=== PATIENT | female | born 1960 | race American Indian/Alaskan Native ===

== ENCOUNTER 2020-10-02 16:28 | Emergency (ER) | payer BC ==
[2020-10-02] MEDS ORDERED: DIPHtheria,PERTUSSIS(ACELL),TETANUS VACCINE/PF 0.5 ML VIAL IM ONE (17:19)
--- NOTE | 2020-10-02 17:20 | Event Note ---
ED Screening Note Date of service: 10/02/20 Time: 17:17 ED Screening Note: 59-year-old female presents to the emergency room stating she has a laceration to her pinky finger in her ring finger on the left hand. Patient states that she cut it accidentally on hedge clippers that her electric. Patient reports she is not up-to-date on her tetanus shot. This initial assessment/diagnostic orders/clinical plan/treatment(s) is/are subject to change based on patients health status, clinical progression and re- assessment by fellow clinical providers in the ED. Further treatment and workup at subsequent clinical providers discretion. Patient/guardian urged not to elope from the ED as their condition may be serious if not clinically assessed and managed. Initial orders include:
--- NOTE | 2020-10-02 19:06 | XRay Report ---
LEFT FINGER(S) 3 VIEW(S) INDICATION / CLINICAL INFORMATION: laceration with hedge cutter COMPARISON: None available. FINDINGS: BONES / JOINT(S): Tiny acute fracture of the terminal tuft of the ring finger. Remaining osseous stru ctures appear intact. No dislocation. Diffuse mild degenerative osteoarthrosis. SOFT TISSUES: Mild edema about the distal ring finger. No radiopaque foreign object. ADDITIONAL FINDINGS: None. Signer Name: David Hilliard MD Signed: 10/02/2020 7:02 PM Workstation Name: [id number]
[2020-10-02] MEDS ORDERED: IBUPROFEN 600 MG TAB PO ONE (23:49)
[2020-10-02] MEDS ORDERED: ACETAMINOPHEN 500 MG TAB PO ONE (23:49)
[2020-10-02] MEDS ORDERED: LIDOCAINE (1%) 10 MG/1 ML VIAL 20 ML MDV INFILTRATI ONE (23:49)
[2020-10-02] MEDS ORDERED: ceFAZolin 1 GM VIAL IM ONE (23:49)
[2020-10-02] MEDS ORDERED: NEOMY 3.5 MG/BACIT 400 UNITS/POLY B 5000 UNITS/GM OINT PACKET TP ONE (23:50)
[2020-10-03] MEDS ORDERED: DIPHtheria,PERTUSSIS(ACELL),TETANUS VACCINE/PF 0.5 ML VIAL IM ONE (00:04)
--- NOTE | 2020-10-03 01:21 | Emergency Department Report ---
ED Upper Extremity Inj HPI - General Chief Complaint: Extremity Injury, Upper Stated Complaint: LT RING/PINKY INJURY Source: patient Mode of arrival: Ambulatory Limitations: No Limitations - History of Present Illness Initial Comments: Patient is a 59-year-old white female with a history of hypertension who presents to the ED with complaint of acute onset persistent painful bleeding distal left ring finger and small finger lacerations after she accidentally cut the distal left ring and small fingers with hedge clippers when trying to trim her fences and hedges about 8 hours ago. Patient states that the pain has been persistent and severe especially in the last 6 hours. Patient states that she is not up-to-date with her tetanus vaccinations. Patient denies numbness and tingling or weakness of left hand, dizziness, syncope, chest pain, shortness of breath, headache, fall, change in vision or back pain. Complaint: Injury to:: left, hand, finger (Left 5th and ring finger lacerations) -: Sudden, hour(s) (8) Other Extremity Injury: Hand: Left (left ring and small finger lacerations) Other Injuries: none Place: home Severity scale (0 -10): 8 Improves With: none Worsens With: movement of extremity Context: laceration (distal left ring and 5th finger cut by hedge clippers accidentally), injury Associated Symptoms: denies other symptoms. denies: weakness, numbness, neck pain, suspects foreign body, nausea/vomiting, heard/felt popping sensat, other - Related Data Previous Rx's Medication Instructions Recorded Last Taken Type Acetaminophen/Codeine [Tylenol 1 tab PO Q6H PRN #10 tab 10/03/20 Unknown Rx /Codeine # 3 tab] Ibuprofen [Motrin] 600 mg PO Q8H PRN #30 tablet 10/03/20 Unknown Rx cephALEXin [Keflex] 500 mg PO Q8HR #30 cap 10/03/20 Unknown Rx Allergies Allergy/AdvReac Type Severity Reaction Status Date / Time No Known Allergies Allergy Unverified 10/02/20 16:38 ED Review of Systems ROS: Stated complaint: LT RING/PINKY INJURY Other details as noted in HPI Constitutional: denies: chills, fever Eyes: denies: eye pain, eye discharge, vision change ENT: denies: ear pain, throat pain Respiratory: denies: cough, shortness of breath, wheezing Cardiovascular: denies: chest pain, palpitations Endocrine: no symptoms reported Gastrointestinal: denies: abdominal pain, nausea, diarrhea Genitourinary: denies: urgency, dysuria, discharge Musculoskeletal: arthralgia (left 5th and ring finger lacerations with pain). denies: back pain, joint swelling Skin: other (Bleeding lacerations on distal left ring and small fingers). denies: rash, lesions Neurological: denies: headache, weakness, paresthesias Psychiatric: denies: anxiety, depression Hematological/Lymphatic: denies: easy bleeding, easy bruising ED Past Medical Hx - Past Medical History Previous Medical History?: Yes Hx Hypertension: Yes - Surgical History Past Surgical History?: No - Social History Smoking Status: Never Smoker Substance Use Type: Alcohol - Medications Home Medications: Home Medications Medication Instructions Recorded Confirmed Last Taken Type Acetaminophen/Codeine [Tylenol 1 tab PO Q6H PRN #10 tab 10/03/20 Unknown Rx /Codeine # 3 tab] Ibuprofen [Motrin] 600 mg PO Q8H PRN #30 tablet 10/03/20 Unknown Rx cephALEXin [Keflex] 500 mg PO Q8HR #30 cap 10/03/20 Unknown Rx ED Physical Exam - General Limitations: No Limitations General appearance: alert, in no apparent distress - Head Head exam: Present: atraumatic, normocephalic, normal inspection - Eye Eye exam: Present: normal appearance, PERRL, EOMI Pupils: Present: normal accommodation - ENT ENT exam: Present: normal exam, normal orophraynx, mucous membranes moist, TM's normal bilaterally, normal external ear exam - Neck Neck exam: Present: normal inspection, full ROM - Respiratory Respiratory exam: Present: normal lung sounds bilaterally. Absent: respiratory distress, wheezes, rales, rhonchi, chest wall tenderness, accessory muscle use, decreased breath sounds - Cardiovascular Cardiovascular Exam: Present: regular rate, normal rhythm, normal heart sounds. Absent: systolic murmur, diastolic murmur, rubs, gallop - GI/Abdominal GI/Abdominal exam: Present: soft, normal bowel sounds. Absent: tenderness, guarding, rebound, hyperactive bowel sounds, hypoactive bowel sounds, mass - Extremities Exam Extremities exam: Present: normal inspection, full ROM, tenderness (Palpable left ring and small finger tenderness due to 2 cm laceration on distal left ring and small fingers), normal capillary refill. Absent: pedal edema, joint swelling - Back Exam Back exam: Present: normal inspection, full ROM. Absent: tenderness, CVA tenderness (L), muscle spasm, paraspinal tenderness - Neurological Exam Neurological exam: Present: alert, oriented X3, CN II-XII intact, normal gait, reflexes normal - Psychiatric Psychiatric exam: Present: normal affect, normal mood - Skin Skin exam: Present: warm, dry, intact, normal color, other (Bleeding to central lacerations on distal right ring and small fingers respectively). Absent: rash ED Course Vital Signs 10/02/20 16:35 Temperature 98.4 F Pulse Rate 88 Respiratory 14 Rate Blood Pressure 165/65 O2 Sat by Pulse 98 Oximetry - Laceration /Wound Repair Left Palm Finger Wound Location: upper extremity (distal left ring finger laceration) Wound Length (cm): 2 Wound's Depth, Shape: superficial, irregular, nail-avulsed Wound Explored: contaminated Irrigated w/ Saline (ccs): 100 Betadine Prep?: Yes Anesthesia: 1% Lidocaine Volume Anesthetic (ccs): 4 Wound Debrided: extensive Wound Repaired With: sutures Suture Size/Type: 4:0, proline Number of Sutures: 10 Layer Closure?: No Sterile Dressing Applied?: Yes (With finger splint) Progress: Patient tolerated the procedure well. Patient was advised return to the ED imm ediately if symptoms get worse. Patient was advised to follow-up with her primary care physician in 7 to 10 days for reevaluation. Patient was also advised to return to the ED or to her primary care physician in 12 to 14 days for suture removal. Left Finger Wound Location: upper extremity (Distal left small finger ) Wound Length (cm): 2 Wound's Depth, Shape: superficial, irregular Wound Explored: contaminated Irrigated w/ Saline (ccs): 100 Betadine Prep?: Yes Anesthesia: 1% Lidocaine Volume Anesthetic (ccs): 4 Wound Debrided: extensive Wound Repaired With: sutures Suture Size/Type: 4:0, proline Number of Sutures: 6 Layer Closure?: No Sterile Dressing Applied?: Yes Progress: Patient tolerated the procedure well. The wound to sutured per protocol and dressed appropriately after application of Neosporin ointment. Patient was discharged home on pain medication and prophylactic antibiotics and advised to return to the ED immediately if symptoms get worse, otherwise follow-up with her primary care physician in 7 to 10 days for reevaluation. Patient was advised to return to the ED or to her primary care physician in 12 to 14 days for suture removal. ED Medical Decision Making - Radiology Data Radiology results: report reviewed, image reviewed Findings [facility] [address] [place] [address] XRay Report Signed Patient: JANE CARRASCO V MR#: [id number] [birth year] : 1960 Acct:[id number] Age/Sex: 59 / F ADM Date: 10/02/20 Loc: ED Attending Dr: Ordering Physician: ASIF KNOWLES Date of Service: 10/02/20 Procedure(s): XR finger(s) 2+V LT Accession Number(s): [id number] cc: ASIF KNOWLES Fluoro Time In Minutes: LEFT FINGER(S) 3 VIEW(S) INDICATION / CLINICAL INFORMATION: laceration with hedge cutter COMPARISON: None available. FINDINGS: BONES / JOINT(S): Tiny acute fracture of the terminal tuft of the ring finger. Remaining osseous structures appear intact. No dislocation. Diffuse mild degenerative osteoarthrosis. SOFT TISSUES: Mild edema about the distal ring finger. No radiopaque foreign object. ADDITIONAL FINDINGS: None. Signer Name: David Hilliard MD Signed: 10/02/2020 7:02 PM Workstation Name: [id number] Transcribed By: RH Dictated By: DAVID HILLIARD III Electronically Authenticated By: DAVID HILLIARD III Signed Date/Time: 10/02/201901 DD/ 99 TD/TT: - Medical Decision Making This is a 59-year-old white female with a history of hypertension who presents to the ED with complaint of acute onset persistent painful bleeding distal left ring finger and small finger lacerations after she accidentally cut the distal left ring and small fingers with hedge clippers when trying to trim her fences and hedges about 8 hours ago. Patient states that the pain has been persistent and severe especially in the last 6 hours. Patient states that she is not up-to-date with her tetanus vaccinations. In the ED, patient is alert and oriented x3 and is not in distress. Patient however appears to be in pain. Patient was treated for pain in the ED also received booster tetanus vaccination. The left hand x-ray showed a tiny acute fracture of the terminal tuft of the ring finger. Remaining osseous structures appear intact. No dislocation. Diffuse mild degenerative osteoarthrosis. The distal left ring finger and small finger lacerations were sutured per protocol. Patient tolerated procedure well. Patient also received Ancef 1 g intramuscular injection in the ED. On reevaluation, patient's pain is well controlled medication. The left ring finger was splinted after the laceration wounds were closed. Patient was discharged home on pain medications and prophylactic antibiotics and was given a referral to the orthopedic surgeon Dr. Frazier for follow-up. Patient was advised return to the ED immediately if symptoms get worse. - Differential Diagnosis Finger fracture; finger contusion; finger laceration; multiple abrasion Critical care attestation.: If time is entered above; I have spent that time in minutes in the direct care of this critically ill patient, excluding procedure time. ED Disposition Clinical Impression: Fracture of distal phalanx of left ring finger Qualifiers: Encounter type: initial encounter Fracture type: open Fracture alignment: nondisplaced Qualified Code(s): S62.665B - Nondisplaced fracture of distal phalanx of left ring finger, initial encounter for open fracture Laceration of left ring finger with damage to nail w/o foreign body Qualifiers: Encounter type: initial encounter Qualified Code(s): S61.315A - Laceration wit hout foreign body of left ring finger with damage to nail, initial encounter Laceration of left little finger w/o foreign body w/o damage to nail Qualifiers: Encounter type: initial encounter Qualified Code(s): S61.217A - Laceration without foreign body of left little finger without damage to nail, initial encounter Disposition: DC- TO HOME OR SELFCARE Is pt being admited?: No Does the pt Need Aspirin: No Condition: Stable Instructions: Finger Fracture, Adult, [id number], Laceration Care, Adult, [id number], Sutured Wound Care, [id number] Additional Instructions: Take medication with food, drink plenty of fluids and follow-up with your primary care physician in 7 to 10 days for reevaluation. Consider following up with the orthopedic surgeon Dr. Frazier for further reevaluation. Return to the ED immediately if symptoms get worse. Otherwise return to the ED or to your primary care physician in 12 to 14 days for suture removal. Prescriptions: cephALEXin [Keflex] 500 mg PO Q8HR #30 cap Ibuprofen [Motrin] 600 mg PO Q8H PRN #30 tablet PRN Reason: Pain Acetaminophen/Codeine [Tylenol /Codeine # 3 tab] 1 tab PO Q6H PRN #10 tab PRN Reason: severe pain Referrals: DAVID FRAZIER MD [Staff Physician] - 3-5 Days [facility] [Provider Group] - 7-10 days Time of Disposition: 02:07 Print Language: [place]
[2020-10-03 03:28] VITALS: BP 142/70
== END 2020-10-03 02:10 | disposition home or self-care (01) ==
LOC: ED 16:28
DX: S62.605A Fracture of unspecified phalanx of left ring finger, initial encounter for closed fracture (principal); S61.215A Laceration without foreign body of left ring finger without damage to nail, initial encounter; S61.217A Laceration without foreign body of left little finger without damage to nail, initial encounter; I10 Essential (primary) hypertension; Z79.1 Long term (current) use of non-steroidal anti-inflammatories (NSAID); Z79.899 Other long term (current) drug therapy; W45.8XXA Other foreign body or object entering through skin, initial encounter; Y93.89 Activity, other specified; Y92.89 Other specified places as the place of occurrence of the external cause; Y99.8 Other external cause status
CPT/HCPCS: 12032; 29130; 73140; 90471; 90715; 96372; 99283; A6250; J0690